=== PATIENT | female | born 1960 | race Caucasian/White ===

== ENCOUNTER → 2017-03-16 | Outpatient (CLI) | payer BC ==
--- NOTE | 2017-03-16 09:30 | KCIC ---
INDICATION: Uterine enlargement. Vaginal spotting for 6 months. History of fibroids per patient. TECHNIQUE: Transabdominal and transvaginal pelvic ultrasound was performed. Transvaginal imaging was to better evaluate the uterine lesions. FINDINGS: Uterus is enlarged at 12.4 x 5.2 x 7.0 cm. Endometrial stripe measures 5 mm. There are multiple probable fibroids that appear to be mostly myometrial. Largest appears subserosal measuring up to 4.5 cm in size. No definite submucosal fibroid is apparent. However, the endometrial stripe is indistinct and difficult to image in its entirety, limiting evaluation of some of the lesions' relationship to the stripe. Both ovaries are visualized with color flow and waveform documented. There is no free pelvic fluid. IMPRESSION: Multiple probable fibroids throughout the uterus, the largest is subserosal and fundal measuring up to 4.5 cm in size. Electronically signed by: Daniele Turner MD (03/16/2017 9:26 AM) [id number]
--- NOTE | 2017-03-16 11:00 | KCIC ---
History: Routine screening. Technique: Bilateral digital mammographic routine views were obtained with CAD - computer aided detection. Comparison: None. Findings: Breast Tissue Density C : The breast tissue is heterogeneously dense. Scattered fibroglandular elements may obscure underlying pathology. There is asymmetric tissue density lateral left breast on the cc view only. There are no suspicious microcalcifications or areas of architectural distortion. Impression: Recommend the patient return for rolled cc views of left breast. Ultrasound may be necessary as well. The patient and the clinical staff will be contacted by the radiology department for further instructions. BI-RADS Category 0: Incomplete: Need additional imaging evaluation. Your mammogram demonstrates that you have dense breast tissue, which could hide abnormalities, and if you have other risk factors for breast cancer that have been identified, you might benefit from supplemental screening tests that may be suggested by your ordering physician. Dense breast tissue, in and of itself, is a relatively common condition. This information is not provided to cause undue concern, but rather to raise your awareness and to promote discussion with your physician regarding the presence of other risk factors, in addition to dense breast tissue. A report of your mammography results will be sent to you and your physician. You should contact your physician if you have any questions or concerns regarding this report. A mammogram does not have 100% sensitivity and therefore a negative imaging study should not delay further work up of a suspicious abnormality. The patient will receive a letter with the results in the mail. Patient information is entered into the reminder system with a target due date for the next screening mammogram. The patient will receive a reminder. "Our facility is accredited by the [employer] Mammography [employer]." Electronically signed by: David Greene III, MD (03/16/2017 10:56 AM) [id number]
== END | disposition home or self-care (01) ==
LOC: KCIC MAMMO 08:19
PROVIDERS: ATTEND Obstetrics & Gynecology
DX: Z12.31 Encounter for screening mammogram for malignant neoplasm of breast (principal); D25.9 Leiomyoma of uterus, unspecified
CPT/HCPCS: 76830; 76856; G0202; 77067

== ENCOUNTER → 2017-03-23 | Outpatient (CLI) | payer BC ==
--- NOTE | 2017-03-24 10:56 | KCIC ---
Diagnostic digital mammograms left breast: Reason for examination: Nodular density on screening mammogram. Comparison is made to mammographic exam dated 03/16/2017. Additional rolled cc views were obtained of the left breast for further evaluation of some nodularity suggested on cc view from screening examination. With these additional views, there is nodularity appears to dissipate and probably reflects some superimposition of tissues. Further evaluation with ultrasound will follow. IMPRESSION: No suspicious abnormalities with additional views. Ultrasound to follow. BI-RADS Category 0: Incomplete. Ultrasound to follow. Left breast ultrasound: Ultrasound examination of the left breast was performed with attention to the area of mammographic concern and left axilla. No discrete cystic or solid nodules or architectural distortions are seen. There are some patchy areas of denser fibroglandular tissue which may account for the parenchymal density seen mammographically. No abnormal appearing lymph nodes are seen in the axilla. IMPRESSION: Patchy areas of dense fibroglandular tissue with no focal nodules evident. No suspicious abnormality seen. Recommend routine mammographic follow-up. BI-RADS Category 2: Benign. "Our facility is accredited by the [employer] Mammography Program." This patient's information has been entered into a reminder system for the patient to be notified with the results of her examination and a target date for the next mammogram. Electronically signed by: Khadra May MD (03/24/2017 10:53 AM) [id number]
== END | disposition home or self-care (01) ==
LOC: KCIC MAMMO 12:36
PROVIDERS: ATTEND Obstetrics & Gynecology
DX: N63 Unspecified lump in breast (principal)
CPT/HCPCS: 76641; G0206; 77065